=== PATIENT | male | born 1985 | race Two or more races ===

== ENCOUNTER 2016-06-12 02:43 | Inpatient (IN) | payer SELFPAY ==
[~2016-06-12] VITALS: Ht 180.3 cm; Wt 88.5 kg
--- NOTE | 2016-06-12 02:50 | NUR ---
PT PRESENTED TO THE ER WITH A C/O ABD PAIN SINCE 11AM YESTERDAY WITH N/V. PT AMBULATED TO BED #1 WITH A STEADY GAIT. PT IS GUARDING HIS ABD. PT WAS PLACED ON THE MONITOR AND CONTINUOUS PULSE OX.
[2016-06-12] MEDS ORDERED: IV SET PRIMARY 1 EA INFUS.SET MC ONE (03:00)
[2016-06-12] MEDS ORDERED: IV NS 0.9% 1,000 ML ONE ×2 (03:00→06:17)
[2016-06-12] MEDS ORDERED: HYDROMORPHONE 1 MG/1 ML DISP.SYRIN ONE (03:00)
[2016-06-12] MEDS ORDERED: IV NS 0.9% 1,000 ML BAG IV ONE (03:00)
[2016-06-12] MEDS ORDERED: PANTOPRAZOLE 40 MG VIAL IV ONE (03:00)
[2016-06-12] MEDS ORDERED: ONDANSETRON HCL/PF 4 MG/2 ML VIAL ONE (03:00)
[2016-06-12] MEDS ORDERED: HYDROMORPHONE INJ 2 MG/ML DISP.SYRIN IV ONE (03:00)
[2016-06-12] MEDS ORDERED: ONDANSETRON HCL/PF 4 MG/2 ML VIAL IVP ONE (03:00)
[2016-06-12] MEDS ORDERED: PANTOPRAZOLE 40 MG VIAL ONE ×2 (03:06→06:09)
--- NOTE | 2016-06-12 03:10 | NUR ---
PT'S DESATURATED TO 92% ON RA. PT WAS PLACED ON 2L O2 VIA NC. PT'S O2 SAT IS NOW 99%.
[2016-06-12 03:16] LABS: BASOPHILS % (AUTO) 0.2 % (0.0-2.0); HEMATOCRIT 49 % (39-51); LYMPHOCYTES # (AUTO) 1.6 /CMM (0.8-4.8); LYMPHOCYTES % (AUTO) 7.2 % (20.0-44.0); MEAN CORPUSCULAR HEMOGLOBIN 31 PG (26.0-33.0); MEAN CORPUSCULAR HGB CONC 35 g/dl (31.0-36.0); MEAN CORPUSCULAR VOLUME 90 fL (80-96); MONOCYTES # (AUTO) 1.2 /CMM (0.1-1.30); MONOCYTES % (AUTO) 5.6 % (2.0-12.0); NEUTROPHILS # (AUTO) 19.2 /CMM (1.8-8.9); PLATELET COUNT (AUTO) 235 /CMM (150-450); RDW COEFFICIENT OF VARIATION 12.9 (11.5-15.0); RED BLOOD CELL COUNT(AUTO) 5.49 MIL/uL (4.5-6.0)
[2016-06-12 03:31] LABS: ALBUMIN 4.5 g/dL (3.4-5.0); BILIRUBIN,DIRECT 0.2 mg/dL (0.0-0.2); BILIRUBIN,TOTAL 2.4 mg/dL (0.2-1.0); CALCIUM, SERUM 9.4 mg/dL (8.5-10.1); CREATININE 1.1 mg/dL (0.6-1.3); POTASSIUM 3.9 mmol/L (3.5-5.1); TOTAL PROTEIN, SERUM 7.5 g/dL (6.4-8.2)
[2016-06-12 03:34] LABS: INR 0.97 (0.87-1.13); PROTHROMBIN TIME 10.4 SECS (9.5-12.7)
--- NOTE | 2016-06-12 03:49 | NUR ---
PT IS GOING TO [facility].
[2016-06-12] MEDS ORDERED: IOHEXOL-300 100 ML VIAL IV ONE (03:52)
[2016-06-12] MEDS ORDERED: IV NS 0.9% 250 ML IV ONE (03:52)
--- NOTE | 2016-06-12 04:13 | NUR ---
PT RETURNED FROM CT.
--- NOTE | 2016-06-12 05:03 | NUR ---
REPORT GIVEN TO YONAS MICHELLE FOR [facility].
[2016-06-12] MEDS ORDERED: PIPERACILLIN /TAZOBACTAM 3.375 G in IV D5W 50 ML IV ONE (05:30)
[2016-06-12] MEDS ORDERED: PIPERACILLIN /TAZOBACTAM 3.375 G VIAL IV ONE (05:41)
[2016-06-12] MEDS ORDERED: IV SET PRIMARY PUMP SET 1 EA INFUS.SET MC ONE (05:41)
[2016-06-12] MEDS ORDERED: IV D5W 50 ML IV ONE (05:41)
--- NOTE | 2016-06-12 05:53 | NUR ---
DR. WHARTON PAGED FOR SURGICAL CONSULT; CALL TRANSFERED TO DR. HUERTAS
--- NOTE | 2016-06-12 05:55 | NUR ---
PT REC'D MEDICATION ORDERED. PT LEFT FOR [facility]IA [facility].
[2016-06-12 06:00] VITALS: BP 119/70
[2016-06-12] MEDS ORDERED: ONDANSETRON HCL/PF 4 MG/2 ML VIAL IVP PRN (06:00)
[2016-06-12] MEDS ORDERED: ZOLPIDEM TARTRATE 5 MG TABLET PO PRN (06:00)
[2016-06-12] MEDS ORDERED: HYDROCODONE/APAP 5/325MG 1 EACH TABLET PO PRN ×3 (06:00→12:30)
[2016-06-12] MEDS ORDERED: PANTOPRAZOLE 40 MG VIAL IV SCH (06:00)
[2016-06-12] MEDS ORDERED: ACETAMINOPHEN 325 MG TABLET PO PRN (06:00)
[2016-06-12] MEDS ORDERED: IV NS 0.9% 1,000 ML IV PRN ×2 (06:00→09:30)
--- NOTE | 2016-06-12 06:00 | NUR ---
MS/RN NOTES RECEIVED PT. FROM ER VIA [facility]. PT. IS AWAKE, ALERT AND ORIENTED X4. BREATHING EVEN AND UNLABORED ON ROOM AIR. NO SOB, RESPIRATORY DISTRESS. PT. COMPLAINING OF EPIGASTRIC PAIN 4/10 AT THIS TIME. PT. WITH LEFT AC 18 GAUGE PERIPHERAL IV PRESENT, PATENT AND INTACT ADMINISTERING TO PT. GAMALIEL FROM ER. PT. IS NPO. ORIENTED PT. TO ROOM. BED IN LOWEST POSITION, CALL LIGHT WITHIN REACH, WILL ENDORSE TO DAYSHIFT NURSE FOR CONTINUITY OF CARE.
[2016-06-12 06:09] LABS: BAND % (MANUAL) 6 % (0.0-5.0); LYMPHOCYTES % (MANUAL) 3 % (16-48); MONOCYTES % (MANUAL) 6 % (0-11.0); NEUTROPHILS % (MANUAL) 85 (42-76)
[2016-06-12 06:10] LABS: PLATELET ESTIMATE ADEQUATE
[2016-06-12 06:56] VITALS: BP 119/70
--- NOTE | 2016-06-12 07:10 | NUR ---
MS RN INITIAL NOTES REPORT RECEIVED AT THE BEDSIDE. PATIENT IS RESTING COMFORTABLY IN BED, NO SOB OR DISTRESS NOTED AT THIS TIME. PATIENT REPORTS TOLERABLE PAIN IN THE LOWER ABDOMEN. AWAITING SURGICAL CONSULT FROM DR WHARTON. BED IN A LOW POSITION, CALL LIGHT WITHIN PATIENT REACH. WILL CONTINUE TO MONITOR.
[2016-06-12] MEDS ORDERED: MORPHINE SULFATE INJ 2 MG/ML DISP.SYRIN IV PRN (07:30)
[2016-06-12 08:07] VITALS: BP 128/67
[2016-06-12] MEDS ORDERED: ROCURONIUM BROMIDE 50 MG/5 ML ONE (10:44)
[2016-06-12] MEDS ORDERED: HYDROMORPHONE INJ 2 MG/ML DISP.SYRIN ONE (10:44)
[2016-06-12] MEDS ORDERED: MIDAZOLAM HCL 2 MG/2ML VIAL ONE (10:44)
[2016-06-12] MEDS ORDERED: SUCCINYLCHOLINE CHLORIDE 20 MG/ML VIAL ONE (10:44)
[2016-06-12] MEDS ORDERED: FENTANYL PF 100MCG/2ML AMPUL ONE (10:44)
[2016-06-12] MEDS ORDERED: BUPIVACAINE MPF W/EPI 0.25% 30 ML VIAL ONE (11:00)
[2016-06-12] MEDS ORDERED: PIPERACILLIN /TAZOBACTAM 3.375 G in IV D5W 50 ML IV SCH (12:00)
[2016-06-12] MEDS ORDERED: MORPHINE SULFATE INJ 4 MG/ML DISP.SYRIN IV PRN (12:30)
[2016-06-12] MEDS: MORPHINE SULFATE INJ 2 MG/ML DISP.SYRIN IV PRN ×2 (13:57→19:47)
[2016-06-12] MEDS: IV D5/0.45 NACL W/20 MEQ KCL 1L IV PRN ×2 (13:58)
[2016-06-12 16:00] VITALS: BP 122/72
[2016-06-12] MEDS: ZOSYN IVPB 3.375 G in IV D5W 50ml IV SCH ×2 (17:12→23:56)
--- NOTE | 2016-06-12 19:23 | NUR ---
MS RN NOTES NO SIGNIFICANT CHANGES IN PATIENT CONDITION THROUGHOUT THE SHIFT. NO SOB OR DISTRESS NOTED AT THIS TIME. PATIENT DENIES PAIN. BED IN LOW POSITION, CALL LIGHT WITHIN PATIENT REACH. WILL ENDORSE TO NEXT SHIFT RN.
--- NOTE | 2016-06-12 19:30 | NUR ---
RN NOTE; RECEIVED PT IN BED AWAKE, A, OX4. BREATHING EVENLY. NO SOB. W. C/O ABD. PAIN . PAIN MEDICATION TO BE GIVEN ORDERED. NO EPISODE OF N/V. ON ONGOING IVF HYDRATION PATTI WELL. DRESSING ON THE ABD CDI. NO BLEEDING. NO DISCHARGES. NEEDS ATTENDED. BED LOW LOCKED. CALL LIGHT WITHIN REACH , WILL CONT TO MONITOR
--- NOTE | 2016-06-12 19:47 | NUR ---
MORPHINE 2MG GIVEN FOR C/O ABD PAIN 10/27. WILL CONT TO MONITOR.
[2016-06-12 20:00] VITALS: BP 111/67
[2016-06-13] MEDS: IV D5/0.45 NACL W/20 MEQ KCL 1L IV PRN ×2 (03:54)
[2016-06-13] MEDS: ZOSYN IVPB 3.375 G in IV D5W 50ml IV SCH (05:37)
--- NOTE | 2016-06-13 06:01 | NUR ---
NORCO 5-325 TWO TABS GIVEN FOR C/O ABD PAIN 08/27. WILL CONT TO MONITOR
--- NOTE | 2016-06-13 06:35 | NUR ---
RN NOTE; PT IN BED DOZING INTERMITTENTLY. BREATHING EVENLY. NO SOB. NO DISTRESS. SKIN WARM AND DRY. SX DRESSING IN PLACE. NO ACUTE CHANGES OR COMPLICATIONS S/P SX NOTED. PAIN MEDICATION GIVEN ORDERED PER PT'S REQUEST W/ EFFECT. PT AMBULATED IN THE RUIZ WAY AND REPORTED PASSING GAS. NO BM S/P SX YET. NEEDS ATTENDED. CALL LIGHT WITHIN REACH. WILL CONT TO MONITOR AND WILL ENDORSE TO AM SHIFT FOR [facility].
[2016-06-13 07:19] LABS: CALCIUM, SERUM 8.5 mg/dL (8.5-10.1); CREATININE 1.3 mg/dL (0.6-1.3); MAGNESIUM 1.8 mg/dL (1.8-2.4); PHOSPHORUS 3.3 mg/dL (2.5-4.9)
[2016-06-13] MEDS ORDERED: PANTOPRAZOLE 40 MG TABLET.DR PO SCH (07:30)
--- NOTE | 2016-06-13 07:30 | NUR ---
MS/RN Patient received Patient received from certified medical technician. No needs at this time, denies pain. Will continue to monitor.
[2016-06-13 08:00] VITALS: BP 106/54
[2016-06-13 08:34] LABS: BASOPHILS % (AUTO) 0.2 % (0.0-2.0); EOSINOPHILS % (AUTO) 0.2 % (0.0-6.0); HEMATOCRIT 44 % (39-51); LYMPHOCYTES # (AUTO) 2.9 /CMM (0.8-4.8); MEAN CORPUSCULAR HEMOGLOBIN 31 PG (26.0-33.0); MEAN CORPUSCULAR HGB CONC 34 g/dl (31.0-36.0); MEAN CORPUSCULAR VOLUME 92 fL (80-96); MONOCYTES # (AUTO) 1.7 /CMM (0.1-1.30); MONOCYTES % (AUTO) 9.5 % (2.0-12.0); NEUTROPHILS # (AUTO) 12.7 /CMM (1.8-8.9); NEUTROPHILS % (AUTO) 73.1 % (43.0-81.0); PLATELET COUNT (AUTO) 221 /CMM (150-450); RDW COEFFICIENT OF VARIATION 12.6 (11.5-15.0); RED BLOOD CELL COUNT(AUTO) 4.82 MIL/uL (4.5-6.0); WHITE BLOOD COUNT (AUTO) 17.3 K/uL (4.3-11.0)
--- NOTE | 2016-06-13 08:45 | NUR ---
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
--- NOTE | 2016-06-13 09:00 | NUR ---
MS/RN Medications Morning medications administered as ordered. No pain at this time.
--- NOTE | 2016-06-13 09:15 | NUR ---
MS/RN Labs Morning labs reviewed: -WBC 17.3 (was 22.0)
--- NOTE | 2016-06-13 09:54 | NUR ---
MS/RN S/B Dr Meek Seen by Dr Meek - patient is stable for discharge from surgical standpoint. Needs to follow up in office in one week for removal of pablo. Office number and telephone number provided to patient.
--- NOTE | 2016-06-13 13:49 | NUR ---
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 Discharge instructions provided along with education which patient stated that he understood. Educated about new medications, including any possible side effects and wound care. Patient instructed to call Dr Meek and make a follow up appointment for one weeks time, telephone number and address provided. Prescription given to patient, copy made and placed in chart. Heplock and name bands removed, all personal belongings return to patient and signed for on personal property list. Escorted to main lobby by RN.
== END 2016-06-13 13:50 | disposition home or self-care (01) | DRG 340 ==
LOC: ER 02:46 → MEDSG2 05:34
PROVIDERS: ADMIT Nurse Practitioner Acute Care; ATTEND Nurse Practitioner Acute Care
PROC: 0DTJ4ZZ Resection of Appendix, Percutaneous Endoscopic Approach (ICD-10-PCS; principal; 2016-06-12 11:30)
DX: K35.3 Acute appendicitis with localized peritonitis (principal); D72.829 Elevated white blood cell count, unspecified; R00.1 Bradycardia, unspecified
CPT/HCPCS: 36415; 80048-TC; 80061-TC; 80076-TC; 83690-TC; 83735-TC; 84100-TC; 85025-TC; 85730-TC; 87040-TC; 87070-TC; 87075-TC; 87081-TC; 87186-TC; 88304-TC; 88305-TC; A4606; C9113; J0330; J1170; J2250; J2270; J2405; J2543; J3010; J3480; J3490; J7030; J7050; J7060; Q9967; Z7610